=== PATIENT | female | born 1985 | race Two or more races ===

== ENCOUNTER 2023-04-17 23:25 | Inpatient (IN) | payer OTHER ==
[2023-04-18] MEDS ORDERED: OXYTOCIN 20 UNITS in 0.9% NS 20 UNIT/1,000 ML INFUS.BAG IV ONE (00:13)
[2023-04-18] MEDS ORDERED: METHYLERGONOVINE MALEATE 0.2 MG/1 ML AMP IM PRN (00:15)
[2023-04-18] MEDS ORDERED: WITCH HAZEL 50% (TUCKS) 40 PAD/JAR PAD TP PRN (00:15)
[2023-04-18] MEDS ORDERED: BENZOCAINE 28 GM HEMORRHOIDAL OINTMENT TP PRN (00:15)
[2023-04-18] MEDS ORDERED: BENZOCAINE 20% 57 GM BOTTLE TP PRN (00:15)
[2023-04-18] MEDS ORDERED: BISACODYL 10 MG SUPP.RECT RC PRN (00:15)
[2023-04-18 01:02] LABS: HEMATOCRIT 32.5 % (32.4-45.2); MCH 26.6 pg (25.7-33.7); MCHC 33.9 g/dl (32.0-36.0); MEAN CELL VOLUME 78.4 fl (80-96); MEAN PLT VOLUME 9.4 fl (7.5-11.1); PLATELET COUNT 252 10^3/uL (134-434); RBC 4.15 M/mm3 (3.60-5.2); RDW 15.6 % (11.6-15.6); WHITE BLOOD COUNT 12.9 K/mm3 (4.0-10.0)
[2023-04-18 01:21] LABS: POTASSIUM 3.4 mmol/L (3.5-5.1)
[2023-04-18 01:22] LABS: CALCIUM 9.5 mg/dL (8.5-10.1)
[2023-04-18 01:23] LABS: BLOOD UREA NITROGEN 10.4 mg/dL (7-18)
[2023-04-18 01:26] LABS: CREATININE 0.7 mg/dL (0.55-1.3)
[2023-04-18] MEDS: OXYTOCIN 20 UNITS in 0.9% NS 20 UNIT/1,000 ML INFUS.BAG IV SCH (01:40)
[2023-04-18 01:49] LABS: ACTIVATED PTT 30.8 SECONDS (25.2-36.5); PROTHROMBIN TIME (PATIENT) 10.3 SEC (9.7-13.0)
[2023-04-18 01:50] LABS: INR 0.89 (0.83-1.09)
[2023-04-18] MEDS: IBUPROFEN 600 MG TABLET (FP) PO PRN (03:00)
[2023-04-18 03:59] VITALS: BMI 30.9
[2023-04-18] MEDS: DEXTROSE 5%-LACTATED RINGERS 1,000 ML IV SCH (04:12)
[2023-04-18 08:28] LABS: HEMATOCRIT 30.1 % (32.4-45.2); HEMOGLOBIN 10.3 GM/dL (10.7-15.3); MCH 26.8 pg (25.7-33.7); MCHC 34.1 g/dl (32.0-36.0); MEAN CELL VOLUME 78.7 fl (80-96); MEAN PLT VOLUME 9.5 fl (7.5-11.1); PLATELET COUNT 211 10^3/uL (134-434); RBC 3.83 M/mm3 (3.60-5.2); RDW 14.8 % (11.6-15.6); WHITE BLOOD COUNT 20.9 K/mm3 (4.0-10.0)
[2023-04-18] MEDS: oxyCODONE HCL 5 MG TABLET PO PRN (08:39)
[2023-04-18] MEDS: ACETAMINOPHEN 325 MG TABLET (FP) PO PRN (08:40)
[2023-04-18 09:15] LABS: ANISOCYTOSIS 0; HELMET CELLS 0; HOWELL-JOLLY BODIES 0; MACROCYTOSIS 0; OVALOCYTE 0; ROULEAU 0; SICKELED CELLS 0; TARGET CELLS 0; TEAR DROP CELLS 0; TOXIC GRANULATION 0
[2023-04-18] MEDS: FERROUS SO4 325 MG TABLET (FP) PO SCH (10:17)
[2023-04-18] MEDS: PRENATAL VITAMINS W/ FOLIC ACID TABLET (FP) PO SCH (10:17)
[2023-04-18 11:10] LABS: ANISOCYTOSIS 0; HELMET CELLS 0; HOWELL-JOLLY BODIES 0; MACROCYTOSIS 0; OVALOCYTE 0; ROULEAU 0; SICKELED CELLS 0; TARGET CELLS 0; TEAR DROP CELLS 0; TOXIC GRANULATION 0
[2023-04-18 11:22] LABS: HIV INTERPRETATION NEGATIVE (NEGATIVE)
[2023-04-18] MEDS ORDERED: FLU VACCINE (FLULAVAL) PF 60 MCG/0.5 ML SYRINGE 2023-2024 IM ONE (15:00)
[2023-04-18] MEDS ORDERED: DIPHTH,PERTUSS(ACELL),TET 0.5 ML DISP.SYRIN IM ONE (15:00)
[2023-04-19] MEDS: FLU VACCINE (FLULAVAL) PF 60 MCG/0.5 ML SYRINGE 2023-2024 IM ONE (09:39)
[2023-04-19] MEDS: DIPHTH,PERTUSS(ACELL),TET 0.5 ML DISP.SYRIN IM ONE (09:40)
[2023-04-20] MEDS: SENNOSIDES/DOCUSATE COMBO (SENNA PLUS) TABLET (UD) PO PRN (05:59)
[2023-04-20 08:51] VITALS: BP 114/50; PULSE 97; RESP 20; TEMP 98.3
== END 2023-04-20 12:50 | disposition home or self-care (01) | DRG 807 ==
LOC: JLDR 23:25 → J3W 04-18 05:40
PROVIDERS: ADMIT Obstetrics & Gynecology; ATTEND Obstetrics & Gynecology
PROC: 10E0XZZ Delivery of Products of Conception, External Approach (ICD-10-PCS; principal; 2023-04-18)
PROC: 0HQ9XZZ Repair Perineum Skin, External Approach (ICD-10-PCS; 2023-04-18)
PROC: 0W8NXZZ Division of Female Perineum, External Approach (ICD-10-PCS; 2023-04-18)
DX: O70.0 First degree perineal laceration during delivery (principal); Z3A.39 39 weeks gestation of pregnancy; Z37.0 Single live birth
CPT/HCPCS: 36415; 80048; 85025; 85610; 85730; 86780; 86850; 86900; 86901; 87389; 90686; 90715; G0008